=== PATIENT | female | born 1945 | race Caucasian/White ===

== ENCOUNTER 2019-03-19 13:44 | Inpatient (IN) | payer MEDICARE, OTHER ==
[2019-03-18 21:05] VITALS: BP 120/57
[~2019-03-19] VITALS: Ht 149.9 cm; Wt 63.0 kg
[~2019-03-19 13:44] MED LIST: CARB200T PO; DIAZ10TA PO; IBUP-1953 PO; LEVE1000 PO; PHEN-563 PO; RISP4TAB4 PO
--- NOTE | 2019-03-19 13:51 | NUR ---
"BIBDAUGHTER FROM SNF, PARANOID "THINKS PEOPLE ARE POISONING HER" REFUSED ALL MEDS AND NOT EATING" PT AGGRESSIVE TOWARDS STAFF, PT WITH FAMILY AT BEDSIDE, PT NOT COOPERATIVE WITH CARE. PT ON MONITOR, VSS, NAD NOTED. PENDING MD JOSEPH
[2019-03-19] MEDS ORDERED: LORAZEPAM INJ 2 MG/ML VIAL IM ONE (14:00)
[2019-03-19] MEDS ORDERED: OLANZAPINE 10 MG VIAL IM ONE ×2 (14:00→14:02)
[2019-03-19] MEDS ORDERED: LORAZEPAM INJ 2 MG/ML VIAL ONE ×3 (14:02→19:38)
[2019-03-19] MEDS ORDERED: DIVA250T PO (14:19)
[2019-03-19] MEDS ORDERED: LORA-259 PO (14:19)
[2019-03-19] MEDS ORDERED: CARB200T PO (14:19)
[2019-03-19] MEDS ORDERED: BUSP5TAB3 PO (14:19)
[2019-03-19] MEDS ORDERED: LEVE1000 PO (14:19)
[2019-03-19] MEDS ORDERED: CALC-34 PO (14:19)
[2019-03-19] MEDS ORDERED: ACET-73 PO (14:23)
[2019-03-19] MEDS ORDERED: SODI100037 PO (14:23)
[2019-03-19] MEDS ORDERED: MAGN400O6 PO (14:23)
[2019-03-19] MEDS ORDERED: CALC1TAB90 PO (14:23)
--- NOTE | 2019-03-19 14:27 | NUR ---
CALLED CISIS CLINICIAN FOR EVAL
[2019-03-19 14:32] LABS: APPEARANCE,URINE Cloudy (CLEAR); BILIRUBIN,URINE Negative (NEGATIVE); BLOOD, URINE Trace-intact Ery/uL (NEGATIVE); COLOR,URINE Yellow (YELLOW); KETONES,URINE 15 (NEGATIVE); LEUKOCYTE ESTERASE ,URINE Negative (NEGATIVE); NITRITE, URINE Negative (NEGATIVE); PROTEIN,URINE 30 mg/dl (NEGATIVE); UGLUCOSE Negative (NEGATIVE); UROBILINOGEN,URINE 0.2 EU/dL (0.2)
[2019-03-19 14:35] LABS: BASOPHILS % (AUTO) 0.3 % (0.0-2.0); EOSINOPHILS % (AUTO) 0.1 % (0.0-6.0); HEMATOCRIT 38 % (33-45); HEMOGLOBIN 12.9 g/dL (11.5-14.8); LYMPHOCYTES # (AUTO) 1.9 /CMM (0.8-4.8); LYMPHOCYTES % (AUTO) 13.3 % (20.0-44.0); MEAN CORPUSCULAR HGB CONC 34 g/dl (31.0-36.0); MEAN CORPUSCULAR VOLUME 94 fL (82-100); MONOCYTES # (AUTO) 1.6 /CMM (0.1-1.30); MONOCYTES % (AUTO) 11.7 % (2.0-12.0); NEUTROPHILS # (AUTO) 10.4 /CMM (1.8-8.9); NEUTROPHILS % (AUTO) 74.6 % (43.0-81.0); PLATELET COUNT (AUTO) 366 /CMM (150-450); RED BLOOD CELL COUNT(AUTO) 4.07 MIL/uL (4.0-5.2); WHITE BLOOD COUNT (AUTO) 13.9 K/uL (4.3-11.0)
[2019-03-19 14:38] LABS: BACTERIA,URINE 1+ /HPF (None Seen); URINE AMORPHOUS PHOSPHATES Few /HPF (None Seen)
[2019-03-19] MEDS ORDERED: diphenhydrAMINE HCL 50 MG/ML VIAL ONE (14:40)
[2019-03-19 14:42] LABS: CALCIUM, SERUM 9.7 mg/dL (8.5-10.1); CARBON DIOXIDE 28 mmol/L (21-32); CHLORIDE 96 mmol/L (98-107); GLUCOSE 113 mg/dL (74-106); SODIUM SERUM 135 mmol/L (136-145); UREA NITROGEN, BLOOD 18 mg/dL (7-18)
[2019-03-19 14:48] LABS: ACETAMINOPHEN 0 ug/ml (10-30); ALANINE AMINOTRANSFERASE 12 U/L (12-78); ALBUMIN 3.9 g/dL (3.4-5.0); ALCOHOL, BLOOD < 3 mg/dL (0-0); ALKALINE PHOSPHATASE 98 U/L (46-116); ASPARTATE AMINOTRANSFERASE 19 U/L (15-37); BILIRUBIN,DIRECT 0.1 mg/dL (0.0-0.2); BILIRUBIN,TOTAL 0.4 mg/dL (0.2-1.0); SALICYLATE 2.1 mg/dL (2.8-20.0); TOTAL PROTEIN, SERUM 8.7 g/dL (6.4-8.2)
--- NOTE | 2019-03-19 14:51 | NUR ---
RECIEVED BED 211-2
[2019-03-19] MEDS ORDERED: LIDOCAINE 2%-EPI 1:100,000 30 ML VIAL TP ONE (15:00)
[2019-03-19] MEDS ORDERED: diphenhydrAMINE HCL 50 MG/ML VIAL IM ONE (15:00)
[2019-03-19] MEDS ORDERED: LORAZEPAM INJ 2 MG/ML VIAL IV ONE ×2 (15:00→19:30)
[2019-03-19] MEDS ORDERED: diphenhydrAMINE HCL 50 MG/ML VIAL IV ONE (15:00)
--- NOTE | 2019-03-19 15:30 | NUR ---
PER DENISE DENNISW; [facility] WILL BE ON THE WAY
[2019-03-19] MEDS ORDERED: MAGNESIUM HYDROXIDE 30 ML UDC PO PRN ×2 (19:30→20:30)
--- NOTE | 2019-03-19 20:10 | NUR ---
report given to novem rn for rubi pt will be transported to gps
[2019-03-19] MEDS ORDERED: MAG HYDROX/AL HYDROX/SIMETH 30 ML UDC PO PRN (20:30)
[2019-03-19] MEDS ORDERED: CALCIUM CARBONATE 500 MG TAB.CHEW PO PRN (20:30)
[2019-03-19] MEDS ORDERED: ACETAMINOPHEN 325 MG TABLET PO PRN ×2 (20:30)
--- NOTE | 2019-03-19 20:30 | NUR ---
GPS ADMISSION NOTES: ADMITTED A 73-YR OLD FEMALE, FROM ER INITIALLY CAME FROM [facility]. ON 5150 FOR GD. PER HOLD, PT ADMITTED DUE TO INCREASED AGITATION, CONFUSION AND REFUSING CARE. PT. HAS BEEN REFUSING MEDICATION, REFUSING TO EAT AND DRINK AND REFUSING CARE, PARANOID AND SUSPICIOUS, DELUSIONAL PATIENT THINKS THAT EVERYBODY WANTS TO KILL HER AND POISON HER, ANXIOUS AND RESTLESS. UPON FACE TO FACE ASSESSMENT, PATIENT IS ALERT AND ORIENTED X1, CONFUSED, ANXIOUS, COOPERATIVE, DISORGANIZED AND DISORIENTED. VERBALIZATION OF FEELING ENCOURAGED. REORIENTATION PROVIDED. PT. WAS ADVISED OF THE HOLD. PT'S RIGHTS DISCUSSED GUIDE TO PRESCRIPTION MEDICATIONS PROVIDED. IN NO APPARENT DISTRESS NOTED. BELONGINGS WERE INVENTORIED AND CHECKED FOR CONTRABAND. PT IS UNDER THE PSYCHIATRIC CARE OF DR. FONG ORDERS OBTAINED, AND UNDER THE MEDICAL CARE OF DR. JOSEPH. SKIN BODY ASSESSMENT DONE. PT. REFUSED TO SIGN ADMISSION CONSENTS D/T MENTAL STATUS. BED LOCKED AND PLACED IN LOWEST POSITION. FALL PRECAUTIONS IN PLACE. WILL CONTINUE TO MONITOR Q15 MIN ROUNDS FOR SAFETY AND BEHAVIOR.
[2019-03-19 21:05] VITALS: BP 120/57
[2019-03-19] MEDS ORDERED: LEVOFLOXACIN (500MG) 500 MG TABLET PO SCH (21:30)
[2019-03-19] MEDS ORDERED: BLOOD SUGAR DIAGNOSTIC 1 EACH STRIP IN ONE (21:30)
[2019-03-19] MEDS: CARBAMAZEPINE 200 MG TABLET PO SCH (21:39)
[2019-03-19] MEDS: LEVETIRACETAM (250 MG) 250 MG TABLET PO SCH (21:40)
[2019-03-20 08:00] VITALS: BP 100/59
[2019-03-20] MEDS: CALCIUM CARB 600MG /VIT D 1 EACH TABLET PO SCH (09:00)
--- NOTE | 2019-03-20 09:31 | NUR ---
SW contacted [facility] ([facility]) Address: [address] [place] [phone] and spoke with Kailee, clinical administrative coordinator who stated pt is able to return once stable for discharge.
[2019-03-20] MEDS: SODIUM CHLORIDE 1000 MG TABLET PO SCH ×2 (09:38→17:20)
[2019-03-20] MEDS: LEVETIRACETAM (250 MG) 250 MG TABLET PO SCH ×2 (09:38→20:39)
[2019-03-20] MEDS: CARBAMAZEPINE 200 MG TABLET PO SCH ×2 (09:38→21:04)
--- NOTE | 2019-03-20 12:25 | NUR ---
WOUND CARE CONSULT: PT PRESENTS WITH INTACT SKIN. PT IS INCONTINENT AT TIMES. RECOMMENDATIONS MADE FOR SKIN PROTECTION. DISCUSSED WITH NURSING STAFF. WILL SEE PRN. Addendum: 03/20/19 at 1226 by TEOFILO MICHAELS WNDNU Amended: Links added.
[2019-03-20] MEDS ORDERED: Z GUARD REMEDY 2 OZ OINT TP PRN (12:30)
--- NOTE | 2019-03-20 13:00 | NUR ---
SW contacted pt daughter Susana [phone] who provided SW with collateral information and discussed discharge and treatment plan. Daughter mentioned that pt has history of schizophrenia and stated that she has been living at [facility] for 5 years after pts . Per daughter, this is pts second psychiatric hospitalization and stated that pt has been delusional and paranoid and refusing to eat due to pt believing she is being poisoned.
--- NOTE | 2019-03-20 13:20 | NUR ---
EKG RESULT REPORTED TO DR. FONG AND NO NEW ORDER.
[2019-03-20] MEDS: DIVALPROEX SODIUM 125 MG TABLET.DR PO SCH ×2 (13:46→20:39)
--- NOTE | 2019-03-20 13:53 | NUR ---
INITIAL DISCHARGE PLAN: Per daughter Susana [phone] she wishes for pt to return to [facility] ([facility]) Address: [address] [place] [address], [place] [address] . DARCI spoke with Kailee, admissions gate attendant who stated pt is able to return once stable for discharge. DARCI will help form a safe and proper discharge in collaboration with MD.
[2019-03-20 16:00] VITALS: BP 104/69
--- NOTE | 2019-03-20 16:05 | NUR ---
Group Note: SW went to patient's room to invite patient to attend today's support group at 2:45pm in the activities room, regarding positive coping mechanisms. Patient refused. SW encouraged patient to attend later but respected patient's self-determination.
[2019-03-20] MEDS: Z GUARD REMEDY 2 OZ OINT TP SCH (16:17)
--- NOTE | 2019-03-20 18:14 | NUR ---
DR. FONG IN TO SEE PT.EKG DONE-REPORT CALLED TO DR. FONG.SWALLOW EVAL. DONE.
[2019-03-20] MEDS ORDERED: QUETIAPINE FUMARATE 25 MG TABLET PO SCH (20:00)
[2019-03-20 20:25] VITALS: BP 123/63
[2019-03-20 20:30] VITALS: BP 132/89
[2019-03-20] MEDS: TEMAZEPAM 7.5 MG CAPSULE PO PRN (21:24)
[2019-03-21] MEDS: LORAZEPAM 0.5 MG TABLET PO PRN (03:05)
[2019-03-21 06:46] LABS: BASOPHILS % (AUTO) 0.3 % (0.0-2.0); EOSINOPHILS % (AUTO) 4.7 % (0.0-6.0); HEMATOCRIT 34 % (33-45); HEMOGLOBIN 11.5 g/dL (11.5-14.8); LYMPHOCYTES # (AUTO) 1.5 /CMM (0.8-4.8); LYMPHOCYTES % (AUTO) 27.5 % (20.0-44.0); MEAN CORPUSCULAR HGB CONC 34 g/dl (31.0-36.0); MEAN CORPUSCULAR VOLUME 94 fL (82-100); MONOCYTES # (AUTO) 0.7 /CMM (0.1-1.30); MONOCYTES % (AUTO) 13.9 % (2.0-12.0); NEUTROPHILS # (AUTO) 2.8 /CMM (1.8-8.9); NEUTROPHILS % (AUTO) 53.6 % (43.0-81.0); PLATELET COUNT (AUTO) 268 /CMM (150-450); WHITE BLOOD COUNT (AUTO) 5.3 K/uL (4.3-11.0)
[2019-03-21 06:56] LABS: CALCIUM, SERUM 8.5 mg/dL (8.5-10.1); CREATININE 0.6 mg/dL (0.6-1.3); POTASSIUM 3.7 mmol/L (3.5-5.1)
[2019-03-21 08:00] VITALS: BP 100/56
[2019-03-21] MEDS: SODIUM CHLORIDE 1000 MG TABLET PO SCH ×2 (09:00→16:11)
[2019-03-21] MEDS: CALCIUM CARB 600MG /VIT D 1 EACH TABLET PO SCH (09:00)
[2019-03-21] MEDS: DIVALPROEX SODIUM 125 MG TABLET.DR PO SCH ×3 (09:00→21:21)
[2019-03-21] MEDS: CARBAMAZEPINE 200 MG TABLET PO SCH ×3 (09:00→21:40)
[2019-03-21] MEDS: LEVETIRACETAM (250 MG) 250 MG TABLET PO SCH ×3 (09:00→21:21)
[2019-03-21] MEDS ORDERED: QUETIAPINE FUMARATE 25 MG TABLET PO SCH ×2 (10:20→13:00)
[2019-03-21] MEDS: Z GUARD REMEDY 2 OZ OINT TP SCH (10:53)
--- NOTE | 2019-03-21 10:54 | NUR ---
RN NOTE: PATIENT REFUSED 0900 MEDICATIONS. PATIENT IS EXTREMELY PARANOID THINKING THAT WERE TRYING TO POISON HER. AFTER MULTIPLE ATTEMPTS, PATIENT STILL CONTINUES TO REFUSE MEDICATIONS.
[2019-03-21] MEDS: risperiDONE 1 MG TABLET PO SCH ×3 (13:00→21:21)
[2019-03-21] MEDS: BENZTROPINE MESYLATE (1 MG) 1 MG TABLET PO SCH ×3 (13:00→21:21)
--- NOTE | 2019-03-21 13:00 | NUR ---
RN NOTE: PATIENT REFUSED 1300 MEDS
--- NOTE | 2019-03-21 13:25 | NUR ---
RN NOTE: PATIENT REFUSED HER [address] FONG AND DR ZEE AWARE. ATIVAN IM ORDERED IN CASE PATIENT HAS A SEIZURE.
--- NOTE | 2019-03-21 13:26 | NUR ---
RN NOTE: PATIENT IS EXTREMELY PARANOID, THINKING THAT THE STAFF IS TRYING TO POISON HER WITH THE MEDICATIONS AND THE FOOD. PATIENT REFUSED TO EAT HER MEALS DUE TO HER PARANOIA.
[2019-03-21] MEDS ORDERED: LORAZEPAM INJ 2 MG/ML VIAL IM PRN ×2 (13:30→22:00)
--- NOTE | 2019-03-21 15:12 | NUR ---
RN NOTE: PATIENT IS EXTREMELY AGITATED AND PARANOID YELLING AT STAFF, CURSING IN POLISH TRYING TO HIT MULTIPLE STAFF MEMBERS. UNABLE TO RE-DIRECT PATIENT. PATIENT IS REFUSING ALL MEDS. OFFERED HER PRN MEDICATION BUT PATIENT DOES NOT WANT TO TAKE ANY MEDICATIONS AND STATES THAT WE'RE TRYING TO POISON HER. CONTACTED DR FONG, ORDER FOR ZYPREXA 3MG IM 1 TIME ONLY RECEIVED AND WILL CARRY OUT.
[2019-03-21] MEDS ORDERED: OLANZAPINE 10 MG VIAL IM ONE (15:30)
--- NOTE | 2019-03-21 16:51 | NUR ---
CHEMICAL RESTRAINT NOTE: FROM THE BEGINNING FROM THIS MORNING, PATIENT WAS VERY AGITATED AND PARANOID, CURSING AT STAFF WHEN STAFF WOULD APPROACH PATIENT. PATIENT WAS PLACED IN A LOW STIMULUS ENVIRONMENT TO DECREASE AGITATION. PATIENT HAD REFUSED ALL MEDS TODAY INCLUDING PSYCH MEDS. THEN, AROUND 1500, WHEN I APPROACHED PATIENT, SHE SWUNG AT ME HITTING ME AND CURSING AT ME. PATIENT IS EXTREMELY AGITATED AND PARANOID YELLING AT STAFF, CURSING IN SAO TOMEAN TRYING TO HIT MULTIPLE STAFF MEMBERS. UNABLE TO RE-DIRECT PATIENT. OFFERED HER PRN MEDICATION BUT PATIENT DOES NOT WANT TO TAKE ANY MEDICATIONS AND STATES THAT WE'RE TRYING TO POISON HER. CONTACTED DR FONG, ORDER FOR ZYPREXA 3MG IM 1 TIME ONLY. PULLED MEDICATION AND INFORMED PATIENT THAT SHE CAN EITHER TAKE HER PO PRN MEDICATION FOR AGITATION OR SHE WILL BE GETTING THE SHOT. AFTER INFORMING HER MULTIPLE TIMES, PATIENT CONTINUED TO REFUSE THE PO MEDS. WITH THE HELP OF STAFF, WE TRIED HOLDING THE PATIENT'S ARMS DOWN. ZYPREXA 3MG IM 1 TIME DOSE WAS GIVEN AT 1553 TO THE PATIENT'S RIGHT DELTOID. AFTER 30 MINUTES OF OBSERVATION, PATIENT IS A LITTLE MORE CALM BUT STILL YELLING AND AGITATED. WILL CONTINUE TO MONITOR PATIENT AND INFORM DR FONG OF NEEDED UPDATES.
--- NOTE | 2019-03-21 20:00 | NUR ---
GPS RN notes Pt refused to have BP check. Informed Pt the important BP check. Pt kept refusing. Will continue to monitor.
--- NOTE | 2019-03-21 21:30 | NUR ---
GPS RN notes Pt is very agitated and combative. Pt refused PM medications. Informed Pt about benefits of taking meds. Pt keep refusing. Charge nurse YIN Tatum is informed and notify. Will continue to monitor.
--- NOTE | 2019-03-21 21:50 | NUR ---
GPS RN meds Administered Ativan 1 mg/0.5 ml/IM injection as ordered for Pt. Pt is very combative, paranoia, and screaming and yelling loudly all the time. Pt refused PM meds. Pt spit to the staff and tried to hit the staff. Tried to talk softly with Pt. Pt keep screaming, non compliance, cursing and combative. MD was informed. Charge nurse YIN Tatum is informed and notified. Will continue to monitor q15 min.
--- NOTE | 2019-03-21 21:55 | NUR ---
GPS RN NOTE: PATIENT SCREAMING NON STOP, AGITATED, RESTLESS, DISORGANIZED, CURSING, REFUSED MEDS REGARDLESS OF MULTIPLE EXPLANATIONS OF RISK AND BENEFITS AND PATIENT ALSO REFUSED V/S, COMBATIVE AND PARANOID. ATTEMPTED TO REDIRECT THE PATIENT WITH THE HELP OF SWEDISH STAFF MULTIPLE TIMES, PATIENT IS HARD TO REDIRECT. NOTIFIED DR. FONG WITH ORDER OF ATIVAN 1 MG IM NOTED AND CARRIED OUT. WILL CONTINUE TO MONITOR Q15 MINS FOR SAFETY Addendum: 03/21/19 at 2212 by JEREMIAH CAMARA II, RN ADDENDUM: PATIENT ALSO NOTED FOR ATTEMPTING TO HIT STAFF MULTIPLE TIMES. MULTIPLE REDIRECTION AND EXPLANATION PROVIDED AND PATIENT STILL NOT LISTENING AND HARD TO REDIRECT
[2019-03-21] MEDS ORDERED: LORAZEPAM INJ 2 MG/ML VIAL IM ONE (22:00)
--- NOTE | 2019-03-21 22:27 | NUR ---
GPS RN notes Pt is placed in observation room per charge nurse ordered. Talk to Pt softly and Pt keep screaming and yelling in Citizen Of [place] language. Pt is still combative, agitated, restless, paranoia, screaming and yelling loudly disturbing other Pt after Ativan IM 1mg. Will continue to monitor Q 15min.
[2019-03-21 22:32] VITALS: BP 112/43
--- NOTE | 2019-03-21 22:32 | NUR ---
GPS RN notes Pt's BP 112/43, pulse 108. Will continue to monitor Q15 min.
--- NOTE | 2019-03-21 22:35 | NUR ---
PATIENT STILL SCREAMING NON STOP, AGITATED, RESTLESS, PARANOID, CONFUSED AND DISORGANIZED, ABLE TO GET VW=551/43 P=108 R=24. [address]IED [address]. FONG WITH ORDER OF HALDOL 3MG, COGENTIN 1MG IM NOW NOTED AND CARRIED OUT. WILL CONTINUE TO MONITOR
[2019-03-21] MEDS ORDERED: BENZTROPINE MESYLATE (2MG/2ML) 2 MG/2 ML AMPUL IM SCH (23:00)
[2019-03-21] MEDS ORDERED: HALOPERIDOL LACTATE INJ 5 MG/ML VIAL IM ONE (23:00)
--- NOTE | 2019-03-21 23:05 | NUR ---
GPS RN notes Administered Haldol lactate inj 3mg/0.6 ml/once and Congentin 1 mg/1 ml/once as MD ordered. Pt is still combative, non compliance with staffs, agitated, screaming and yelling loudly in Nepali language. Pt is in Observation room for low stimulus. VS is stable. MD is notified and informed. Charge nurse is aware and notify. Will continue to monitor Q 15 min.
--- NOTE | 2019-03-22 02:01 | NUR ---
GPS RN notes Brought back Pt to bed in Pt's room. Pt keep screaming, yelling to staffs in Ghanaian language, non compliant with POC, agitated, and combative. Reality check is provided. Explained to Pt of policy and procedure. Will continue to monitor Q15 mins check. Charge nurse YIN Tatum is aware and notify.
--- NOTE | 2019-03-22 06:00 | NUR ---
GPS RN notes Pt tried to get out of bed. Placed Pt in alejandro-chair. Pt still agitated, combative, cursing, yelling and screaming in Vietnamese language. Reality orientation is provided. Pt kept taking off her gown and refused blanket. Will continue to monitor Q 15 mins checked. Charge nurse YIN Tatum aware and notify.
[2019-03-22 08:00] VITALS: BP 100/64
[2019-03-22] MEDS: CALCIUM CARB 600MG /VIT D 1 EACH TABLET PO SCH (09:00)
[2019-03-22] MEDS: CARBAMAZEPINE 200 MG TABLET PO SCH ×2 (09:00→21:21)
[2019-03-22] MEDS: LEVETIRACETAM (250 MG) 250 MG TABLET PO SCH ×2 (09:00→21:20)
[2019-03-22] MEDS: DIVALPROEX SODIUM 125 MG TABLET.DR PO SCH ×2 (09:00→21:20)
[2019-03-22] MEDS: SODIUM CHLORIDE 1000 MG TABLET PO SCH ×2 (09:00→17:00)
[2019-03-22] MEDS: Z GUARD REMEDY 2 OZ OINT TP SCH (09:00)
--- NOTE | 2019-03-22 09:00 | NUR ---
gps psychiatric nursing aide: notes offered her am meds (tegretol, keppra, and depakote), but pt thrown them on the floor. dr. adrian here and made aware.
--- NOTE | 2019-03-22 11:50 | NUR ---
gps vice president of talent management: notes seen by dr. milan at this time. pt still refuses to take her meds. pt remains confused and disoriented to time, place, and situation. reality orientation provided prn. will continue to monitor.
[2019-03-22] MEDS: risperiDONE 1 MG TABLET PO SCH ×2 (13:00→17:00)
[2019-03-22] MEDS: BENZTROPINE MESYLATE (1 MG) 1 MG TABLET PO SCH ×2 (13:00→21:19)
--- NOTE | 2019-03-22 15:00 | NUR ---
GROUP NOTE: Pt unable to attend group therapy on this present day due to pts psychotic symptoms and refusing medication. Pt also has Dementia and only alert to self. Pt is verbally aggressive and is yelling and screaming.
--- NOTE | 2019-03-22 16:00 | NUR ---
DARCI contacted pt daughter Susana [phone] to inform her pt will be having a RIESE Hearing on Monday03/25/19. Daughter agreed with RIESE Hearing and stated she wishes for pt to be given psychiatric medication via injection.
--- NOTE | 2019-03-22 16:00 | NUR ---
gps senior procurement manager: notes pt refused vital signs to be taken at this time.
--- NOTE | 2019-03-22 17:38 | NUR ---
GPS WEATHER ANCHOR: NOTES PT CONTINUE TO REFUSED HER MEDICATIONS DESPITE TEACHINGS PROVIDED WITH LAO STAFF TRANSLATING. PT REMAINS CONFUSED AND DISORIENTED. REALITY ORIENTATION PROVIDED PRN. WILL CONTINUE TO MONITOR.
[2019-03-22 20:00] VITALS: BP 118/64
[2019-03-23 07:05] VITALS: BP 118/64
[2019-03-23 08:00] VITALS: BP 113/68
[2019-03-23] MEDS: SODIUM CHLORIDE 1000 MG TABLET PO SCH ×2 (09:15→16:59)
[2019-03-23] MEDS: LEVETIRACETAM (250 MG) 250 MG TABLET PO SCH ×2 (09:15→21:00)
[2019-03-23] MEDS: CALCIUM CARB 600MG /VIT D 1 EACH TABLET PO SCH (09:17)
[2019-03-23] MEDS: CARBAMAZEPINE 200 MG TABLET PO SCH ×2 (09:17→21:21)
[2019-03-23] MEDS: DIVALPROEX SODIUM 125 MG TABLET.DR PO SCH ×2 (09:17→21:00)
[2019-03-23] MEDS: risperiDONE 1 MG TABLET PO SCH ×3 (09:18→16:59)
[2019-03-23] MEDS: Z GUARD REMEDY 2 OZ OINT TP SCH (09:19)
[2019-03-23] MEDS: BENZTROPINE MESYLATE (1 MG) 1 MG TABLET PO SCH ×2 (13:30→21:00)
[2019-03-23 16:00] VITALS: BP 125/81
--- NOTE | 2019-03-23 16:00 | NUR ---
RESTING IN BED,QUIET,NO COMPLAINTS OFFERED.
--- NOTE | 2019-03-23 20:00 | NUR ---
GPS RN NOTES PT REFUSED TO HAVE VS TAKEN. EXPLAINED TO PT IMPORTANCE OF VS IN HER POC BUT PT STILL REFUSED. WILL CONTINUE TO MONITOR.
[2019-03-23] MEDS: TEMAZEPAM 7.5 MG CAPSULE PO PRN (21:22)
--- NOTE | 2019-03-23 21:22 | NUR ---
MS YIN NOTES PT REQUESTED FOR SLEEPING PILL. OFFERED RESTORIL BUT PT REFUSING TO TAKE HER MEDS. WASTED SLEEPING PILL WITH ANOTHER RN. WILL CONTINUE TO MONITOR. Addendum: 03/24/19 at 0652 by JOVANI CA RN EDINSON ESQUEDA NOTES NOT
[2019-03-24] MEDS: CARBAMAZEPINE 200 MG TABLET PO SCH ×2 (09:00→22:00)
[2019-03-24] MEDS: risperiDONE 1 MG TABLET PO SCH ×3 (09:00→17:00)
[2019-03-24] MEDS: DIVALPROEX SODIUM 125 MG TABLET.DR PO SCH ×2 (09:00→21:00)
[2019-03-24] MEDS: SODIUM CHLORIDE 1000 MG TABLET PO SCH ×2 (09:00→17:00)
[2019-03-24] MEDS: LEVETIRACETAM (250 MG) 250 MG TABLET PO SCH ×2 (09:00→21:00)
[2019-03-24] MEDS: Z GUARD REMEDY 2 OZ OINT TP SCH (09:00)
[2019-03-24] MEDS: CALCIUM CARB 600MG /VIT D 1 EACH TABLET PO SCH (09:00)
--- NOTE | 2019-03-24 09:00 | NUR ---
RN NOTES PATIENT VERY CONFUSED AND ANXIOUS, PARANOID AND REFUSED ALL HER MEDICATIONS. TALKS TO SELF AND YELLS.
[2019-03-24] MEDS: BENZTROPINE MESYLATE (1 MG) 1 MG TABLET PO SCH ×2 (13:00→21:00)
[2019-03-24 16:00] VITALS: BP 126/81
[2019-03-24 21:33] VITALS: BP 121/84
--- NOTE | 2019-03-24 21:39 | NUR ---
Patient is confused. Alert and oriented x1, person. Refused medications after three trials with software engineer advisor. Disorganized thought process and nonsensical speech. Will continue to monitor behavior.
--- NOTE | 2019-03-25 05:03 | NUR ---
Patient refused body assessment for pictures of possible opening wound.
[2019-03-25 08:00] VITALS: BP 116/80
[2019-03-25] MEDS: DIVALPROEX SODIUM 125 MG TABLET.DR PO SCH ×3 (08:25→22:19)
[2019-03-25] MEDS: CARBAMAZEPINE 200 MG TABLET PO SCH ×3 (08:25→22:19)
[2019-03-25] MEDS: SODIUM CHLORIDE 1000 MG TABLET PO SCH ×3 (08:25→17:42)
[2019-03-25] MEDS: risperiDONE 1 MG TABLET PO SCH ×4 (08:25→17:42)
[2019-03-25] MEDS: LEVETIRACETAM (250 MG) 250 MG TABLET PO SCH ×3 (08:25→22:19)
[2019-03-25] MEDS: Z GUARD REMEDY 2 OZ OINT TP SCH (08:26)
[2019-03-25] MEDS: CALCIUM CARB 600MG /VIT D 1 EACH TABLET PO SCH ×2 (08:30→09:00)
--- NOTE | 2019-03-25 09:30 | NUR ---
GPS/RN AM SHIFT INITIAL NOTES RECEIVED PT AWAKE IN BED, CITIZEN OF [place] SPEAKING, PT IS ALERT, ABLE TO VERBALIZED HER NEEDS, BUT CONFUSE. THRU AN TRACKWALKER DENIES ANY SI AND HI. VERY HARD TO CONVINCE PT TO TAKE HER MEDICATION BUT EVENTUALLY REFUSED HER SCHEDULED AM MEDS. SAFETY MAINTAINED. ON GOING MONITORING.
--- NOTE | 2019-03-25 10:00 | NUR ---
GPS/RN ON FLOOR PT FOUND ON THE FLOOR. ASSESSMENT PERFORMED. THRU AN MANAGEMENT REP PT VERBALIZED THAT SHE ONLY WANTED TO URINATE ON THE FLOOR. NO OBVIOUS PHYSICAL INJURY NOTED UPON ASSESSMENT, PT DENIES ANY SYMPTOMS. PRIMARY MEDICAL AND PSYCH DOCTORS MADE AWARE. CONTINUED MONITORING.
--- NOTE | 2019-03-25 10:30 | NUR ---
GPS/RN CALL BACK CONTACTED Geoff AYALA REGARDING INCIDENT OF PT FOUND ON THE FLOOR, NO NEW ORDERS RECEIVED, CHARGE NURSE MADE AWARE.
[2019-03-25] MEDS ORDERED: BENZTROPINE MESYLATE (1 MG) 1 MG TABLET PO SCH (12:30)
--- NOTE | 2019-03-25 12:45 | NUR ---
GPS/RN NOON MEDICATION ABLE TO CONVINCE PT TO TAKE HER MEDICATION. PT TOOK HER MEDICATION WITHOUT ANY INCIDENT. MONITORING CONTINUED.
[2019-03-25] MEDS ORDERED: OLANZAPINE 10 MG VIAL IM ONE (14:00)
--- NOTE | 2019-03-25 15:00 | NUR ---
GROUP NOTE: SW encourage pt to participate in group therapy on this present day discussing the topic of "reality-testing." Pt unable to participate due to yelling, screaming, and refusing medications.
[2019-03-25 16:00] VITALS: BP 121/61
--- NOTE | 2019-03-25 17:45 | NUR ---
GPS/RN COMPLIANT - PM MEDS PT TOOK HER SCHEDULED AM MEDS WITHOUT HESITATION. CHARGE NURSE MADE AWARE.
--- NOTE | 2019-03-25 19:14 | NUR ---
GPS/RN AM SHIFT END NOTES ALL NEEDS MET. NO ACUTE CHANGE OF CONDITION NOTED OR PHYSICAL INJURY WHEN PT WAS FOUND ON THE FLOOR EARLIER DURING THE SHIFT, HAS BECOME COMPLIANT OF HER MEDICATION IN THE MIDDLE OF THE SHIFT. PT ENDORSED TO PM NURSE IN STABLE CONDITION TO CONTINUE CARE.
[2019-03-25 20:00] VITALS: BP 119/64
[2019-03-25 20:30] VITALS: BP 119/64
[2019-03-25] MEDS ORDERED: OLANZAPINE 10 MG VIAL IM PRN (21:00)
[2019-03-26 08:00] VITALS: BP 128/71
[2019-03-26] MEDS: LEVETIRACETAM (250 MG) 250 MG TABLET PO SCH ×3 (09:00→21:00)
[2019-03-26] MEDS: SODIUM CHLORIDE 1000 MG TABLET PO SCH ×3 (09:00→17:51)
[2019-03-26] MEDS: DIVALPROEX SODIUM 125 MG TABLET.DR PO SCH ×3 (09:00→21:00)
[2019-03-26] MEDS: risperiDONE 1 MG TABLET PO SCH ×3 (09:00→17:51)
[2019-03-26] MEDS: CALCIUM CARB 600MG /VIT D 1 EACH TABLET PO SCH ×2 (09:00→11:29)
[2019-03-26] MEDS: CARBAMAZEPINE 200 MG TABLET PO SCH ×3 (09:00→22:00)
[2019-03-26] MEDS: BENZTROPINE MESYLATE (1 MG) 1 MG TABLET PO SCH ×3 (09:00→17:52)
[2019-03-26] MEDS: Z GUARD REMEDY 2 OZ OINT TP SCH (09:00)
--- NOTE | 2019-03-26 15:16 | NUR ---
Group Note: SW encouraged the pt to participate in group therapy on 03/26/19 at 2pm discussing the topic of discharge planning. Pt was unable to participate due to yelling, screaming, and refusing medications. Pt did not appear to be appropriate for group therapy. Pt is also only Pakistani speaking so the SW was unable to communicate with the pt. SW had a CANE BURNER inform the pt that she would return to the facility that she came from called [facility].
[2019-03-26 16:00] VITALS: BP 141/98
[2019-03-26 20:09] VITALS: BP 105/59
--- NOTE | 2019-03-26 22:48 | NUR ---
GPS RN NOTE: PATIENT REFUSED PM MEDS, EXPLAINED THE RISK AND BENEFIT X 3 ATTEMPTS, PATIENT STILL REFUSED, WILL CONTINUE TO MONITOR Q15 MINS FOR SAFETY
--- NOTE | 2019-03-27 07:10 | NUR ---
RN INITIAL NOTE PATIENT SITTING IN BED. ON RIESED SINCE 03/25. VERY CONFUSED, UNSTEADY GAIT, FALL RISK. WILL CONTINUE TO MONITOR
[2019-03-27 08:00] VITALS: BP 127/51
[2019-03-27] MEDS: CALCIUM CARB 600MG /VIT D 1 EACH TABLET PO SCH (09:00)
[2019-03-27] MEDS: LEVETIRACETAM (250 MG) 250 MG TABLET PO SCH ×2 (09:00→22:00)
[2019-03-27] MEDS: Z GUARD REMEDY 2 OZ OINT TP SCH (09:00)
[2019-03-27] MEDS: BENZTROPINE MESYLATE (1 MG) 1 MG TABLET PO SCH ×2 (09:00→17:53)
[2019-03-27] MEDS: CARBAMAZEPINE 200 MG TABLET PO SCH ×2 (09:00→22:00)
[2019-03-27] MEDS: DIVALPROEX SODIUM 125 MG TABLET.DR PO SCH ×3 (09:00→22:00)
[2019-03-27] MEDS: SODIUM CHLORIDE 1000 MG TABLET PO SCH ×2 (09:00→17:53)
[2019-03-27] MEDS: risperiDONE 1 MG TABLET PO SCH ×3 (09:00→17:53)
--- NOTE | 2019-03-27 13:10 | NUR ---
DARCI received a call from Nola sales program coordinator at [facility] ([facility]) Address: [address] [place] [address], [place] [address] who requested discharge information on pt. DARCI informed her that pts medications are being adjusted and that there is no discharge date as of this present day. DARCI informed her that she will notify her as soon as SW has a discharge date.
[2019-03-27 16:00] VITALS: BP 121/64
[2019-03-27 20:30] VITALS: BP 111/52
[2019-03-28 08:00] VITALS: BP 119/61
[2019-03-28] MEDS: CALCIUM CARB 600MG /VIT D 1 EACH TABLET PO SCH (08:13)
[2019-03-28] MEDS: SODIUM CHLORIDE 1000 MG TABLET PO SCH ×2 (08:14→16:49)
[2019-03-28] MEDS: risperiDONE 1 MG TABLET PO SCH ×2 (08:14→16:48)
[2019-03-28] MEDS: CARBAMAZEPINE 200 MG TABLET PO SCH ×2 (08:14→22:00)
[2019-03-28] MEDS: LEVETIRACETAM (250 MG) 250 MG TABLET PO SCH ×2 (08:14→21:00)
[2019-03-28] MEDS: DIVALPROEX SODIUM 125 MG TABLET.DR PO SCH ×2 (08:14→21:00)
[2019-03-28] MEDS: BENZTROPINE MESYLATE (1 MG) 1 MG TABLET PO SCH ×2 (08:18→16:51)
[2019-03-28] MEDS: Z GUARD REMEDY 2 OZ OINT TP SCH (09:00)
--- NOTE | 2019-03-28 15:34 | NUR ---
Group Note: SW encouraged pt to attend group therapy on 03/28/19 at 2:30pm discussing anger management for when they are in the hospital and for once they are discharged but pt unable to attend.
[2019-03-28 16:00] VITALS: BP 117/60
[2019-03-28 20:00] VITALS: BP 133/59
--- NOTE | 2019-03-28 21:30 | NUR ---
GPS RN NOTES REFUSED ALL HER MEDS.OFFERED SLEEPING PILL BUT REFUSED
[2019-03-28] MEDS: TEMAZEPAM 7.5 MG CAPSULE PO PRN (22:09)
[2019-03-29 03:47] VITALS: BP 133/59
--- NOTE | 2019-03-29 07:16 | NUR ---
OPENING PATIENT SITTING IN BED. ON [id number] TALKING TO SELF CALM REPORTED PT VERY CONFUSED, UNSTEADY GAIT, FALL RISK. WILL CONTINUE TO MONITOR PT ALSO HAS BEEN REFUSING MEDICATIONS
[2019-03-29 08:00] VITALS: BP 126/79
[2019-03-29] MEDS: CALCIUM CARB 600MG /VIT D 1 EACH TABLET PO SCH ×2 (08:52→09:00)
[2019-03-29] MEDS: BENZTROPINE MESYLATE (1 MG) 1 MG TABLET PO SCH ×3 (08:53→16:50)
[2019-03-29] MEDS: CARBAMAZEPINE 200 MG TABLET PO SCH ×3 (08:53→21:19)
[2019-03-29] MEDS: DIVALPROEX SODIUM 125 MG TABLET.DR PO SCH ×2 (08:53→21:19)
[2019-03-29] MEDS: LEVETIRACETAM (250 MG) 250 MG TABLET PO SCH ×3 (08:53→21:19)
[2019-03-29] MEDS: risperiDONE 1 MG TABLET PO SCH ×3 (08:53→16:50)
[2019-03-29] MEDS: Z GUARD REMEDY 2 OZ OINT TP SCH (09:00)
[2019-03-29] MEDS: SODIUM CHLORIDE 1000 MG TABLET PO SCH ×2 (09:00→16:49)
--- NOTE | 2019-03-29 09:58 | NUR ---
pt refused all medications speaking turkmen when asked in turkmen pt states she just not want to take medications no reason given
[2019-03-29] MEDS ORDERED: OLANZAPINE 10 MG VIAL IM PRN (13:00)
--- NOTE | 2019-03-29 15:46 | NUR ---
DAUGHTER CAME TO VISIT PT AND MEDICATION PLAN DEVELOPED. VIETNAMESE SENTENCE ON PT BOARD TELLS PT TO TAKE MEDICATIONS. IN ADDITION GIVE MEDS WITH JELL-O OR APPLE SAUCE.
[2019-03-29 16:00] VITALS: BP 128/74
--- NOTE | 2019-03-29 17:52 | NUR ---
CLOSING PT COOPERATIVE ALL DAY MOSTLY IN ROOM BED IN LOW POSITION KEPT SAFE ALL SHIFT PT COMPLIANT WITH MEDICATION PLAN. WILL GIVEN REPORT TO PM SHIFT FOR CONTINUITY OF CARE
[2019-03-29 18:03] VITALS: BP 125/74
--- NOTE | 2019-03-29 19:52 | NUR ---
OPINING: PT IS ON BED WHEN RECEIVED FROM THE AM SHIFT, NO C/O PAIN AND DISCOMFORT, CONTINUE TO MONITOR PT AND MAINTAIN SAFETY THROUGHOUT THE SHIFT.
[2019-03-29 21:15] VITALS: BP 127/62
[2019-03-30 08:00] VITALS: BP 105/60
[2019-03-30] MEDS: DIVALPROEX SODIUM 125 MG TABLET.DR PO SCH ×2 (08:48→21:06)
[2019-03-30] MEDS: CARBAMAZEPINE 200 MG TABLET PO SCH ×2 (08:48→21:07)
[2019-03-30] MEDS: risperiDONE 1 MG TABLET PO SCH ×2 (08:48→17:17)
[2019-03-30] MEDS: CALCIUM CARB 600MG /VIT D 1 EACH TABLET PO SCH (08:48)
[2019-03-30] MEDS: BENZTROPINE MESYLATE (1 MG) 1 MG TABLET PO SCH ×2 (08:48→17:17)
[2019-03-30] MEDS: SODIUM CHLORIDE 1000 MG TABLET PO SCH ×2 (08:49→17:17)
[2019-03-30] MEDS: LEVETIRACETAM (250 MG) 250 MG TABLET PO SCH ×2 (08:53→21:06)
[2019-03-30] MEDS: Z GUARD REMEDY 2 OZ OINT TP SCH (09:14)
[2019-03-30 16:00] VITALS: BP 111/66
[2019-03-30 20:48] VITALS: BP 105/52
[2019-03-30 22:30] VITALS: BP 106/62
--- NOTE | 2019-03-31 06:44 | NUR ---
RN NOTES: PT. TOOK ALL NIGHT SCHDEULE MEDICATIONS , OFFERED TEZEPAM PRN FOR INSOMNIA , BUT PT. REFUSED TO TAKE.
[2019-03-31 08:00] VITALS: BP 123/76
[2019-03-31] MEDS: SODIUM CHLORIDE 1000 MG TABLET PO SCH ×2 (08:18→16:26)
[2019-03-31] MEDS: CARBAMAZEPINE 200 MG TABLET PO SCH ×2 (08:18→21:17)
[2019-03-31] MEDS: CALCIUM CARB 600MG /VIT D 1 EACH TABLET PO SCH (08:18)
[2019-03-31] MEDS: DIVALPROEX SODIUM 125 MG TABLET.DR PO SCH ×2 (08:19→21:17)
[2019-03-31] MEDS: BENZTROPINE MESYLATE (1 MG) 1 MG TABLET PO SCH ×2 (08:19→16:26)
[2019-03-31] MEDS: risperiDONE 1 MG TABLET PO SCH ×2 (08:19→16:26)
[2019-03-31] MEDS: Z GUARD REMEDY 2 OZ OINT TP SCH (10:33)
[2019-03-31] MEDS: LEVETIRACETAM (250 MG) 250 MG TABLET PO SCH ×2 (10:33→21:17)
[2019-03-31 16:00] VITALS: BP 114/69
[2019-03-31] MEDS: LORAZEPAM 0.5 MG TABLET PO PRN (19:49)
[2019-03-31 20:31] VITALS: BP 106/64
[2019-03-31] MEDS: TEMAZEPAM 7.5 MG CAPSULE PO PRN (22:58)
[2019-04-01 08:00] VITALS: BP 108/64
[2019-04-01] MEDS: LEVETIRACETAM (250 MG) 250 MG TABLET PO SCH (09:05)
[2019-04-01] MEDS: DIVALPROEX SODIUM 125 MG TABLET.DR PO SCH (09:05)
[2019-04-01] MEDS: SODIUM CHLORIDE 1000 MG TABLET PO SCH (09:05)
[2019-04-01] MEDS: risperiDONE 1 MG TABLET PO SCH (09:05)
[2019-04-01] MEDS: CALCIUM CARB 600MG /VIT D 1 EACH TABLET PO SCH (09:05)
[2019-04-01] MEDS: CARBAMAZEPINE 200 MG TABLET PO SCH (09:05)
[2019-04-01] MEDS: BENZTROPINE MESYLATE (1 MG) 1 MG TABLET PO SCH (09:05)
[2019-04-01] MEDS: Z GUARD REMEDY 2 OZ OINT TP SCH (09:06)
--- NOTE | 2019-04-01 14:30 | NUR ---
MS RN NOTES PATIENT DISCHARGED IN STABLE CONDITION. NO SOB OR ACUTE DISTRESS NOTED. PATIENT COOPERATIVE, MED COMPLIANT. NORTHERN IRISH SPEAKING. DAUGHTER MADE AWARE OF DISCHARGE. ALL DUE MEDICATIONS ADMINISTERED. ALL NEEDS MET. PATIENT CONFUSED. DISCHARGE INSTRUCTIONS PROVIDED TO SN AT SNF. NAME STEVE. ALL BELONGINGS ACCOUNTED FOR. BELONGING LIST SIGNED. PATIENT TRANSFERRED VIA AMBULANCE WITH EMT. PATIENT DENIES ANY SI/HI/AVH.
--- NOTE | 2019-04-01 14:56 | NUR ---
Group Note: SW encouraged pt to attend group therapy on 04/01/19 at 1:30pm discussing support systems for when they are in the hospital and for once they are discharged but the pt was unable to attend. Pt was asleep and not easily aroused.
--- NOTE | 2019-04-01 15:40 | NUR ---
Discharge Note: Pt was discharged at 1:00pm to [address] [address] via ambulance transportation. Nola erosion control coordinator, has been notified and clinicals have been faxed to . Pt denied suicidal/homicidal ideations and denied visual/auditory hallucinations. Pts mood and affect was calm and cooperative for discharge. She was agreeable to this placement. Pt will be under the care of Sleeve Bottom Feller: Dr. Ravin Benítez [address] [facility] [phone], [place], [place] [id number] [phone] and Psychiatrist: Dr. Yeimi Sanchez [address], [place] [address] [phone]. The multidisciplinary exit care form was done, printed, signed, and given to the patient.
== END 2019-04-01 14:30 | DRG 885 ==
LOC: ER 13:44 → GPS 19:58
PROVIDERS: ADMIT Psychiatry & Neurology Psychosomatic Medicine; ATTEND Internal Medicine
DX: F25.0 Schizoaffective disorder, bipolar type (principal); F01.50 Vascular dementia, unspecified severity, without behavioral disturbance, psychotic disturbance, mood disturbance, and anxiety; F23 Brief psychotic disorder; F32.9 Major depressive disorder, single episode, unspecified; F41.9 Anxiety disorder, unspecified; G40.909 Epilepsy, unspecified, not intractable, without status epilepticus; I10 Essential (primary) hypertension; Z91.14 Patient's other noncompliance with medication regimen
CPT/HCPCS: 36415; 80048-TC; 80061-TC; 80076-TC; 80305; 81000-TC; 82962-TC; 85025-TC; 87081-TC; 92526; 92611-TC; 97530-TC; G0480; J0515; J1200; J1630; J2060; J3490